=== PATIENT | female | born 1980 | race Caucasian/White ===

== ENCOUNTER 2017-10-15 21:42 | Emergency (ER) | payer OTHER ==
[~2017-10-15] VITALS: Ht 317.5 cm; Wt 72.7 kg
[2017-10-15 22:30] VITALS: TEMP 96
[2017-10-15 22:31] VITALS: Ht 317.5 cm; Wt 72.7 kg
[2017-10-15] MEDS ORDERED: LORAZEPAM 2 MG INJ IM ONE (23:30)
--- NOTE | 2017-10-15 23:46 | RADRPT ---
PROCEDURE: Noncontrast CT Head. CLINICAL INDICATION: Pain. TECHNIQUE: Noncontrast CT of the head was obtained. The administered radiation dose was CTDI vol = 45 mGy, DLP = 810 mGy-cm. One or more of the following dose reduction techniques were used: automate d exposure control, adjustment of the mA and/or kV according to patient size and/or use of iterative reconstruction technique. DICOM images are available. COMPARISON: No pertinent prior examinations were submitted for comparison. FINDINGS: The ventricles and sulci are within normal limits. There is no acute intracranial hemorrhage or ext ra-axial fluid collection. There is no mass effect. No midline shift is identified. There is no loss of latif-white differentiation to suggest acute infarction. The orbits are within normal limits. The paranasal sinuses and mastoid air cells are without fluid. No destructive osseous lesion is identified. IMPRESSION: No acute findings. RPTAT: HIKT .Fawad Ignacio MD, MD Date Time Electronically viewed and signed by .Fawad Ignacio MD, on 10/15/2017 23:46 .T/
--- NOTE | 2017-10-15 23:52 | RADRPT ---
PROCEDURE: Noncontrast CT facial bones. CLINICAL INDICATION: Trauma. TECHNIQUE: Noncontrast CT of the facial bones was obtained. Coronal and sagittal re-formations were provided. The administered radiation dose was CTDI vol = 29 mGy, DLP = 491 mGy-cm. One or more of the following dose reduction techniques were used: automated exposure control, adjustment of the mA and/or kV according to patient size and/or use of iterative reconstruction technique. DICOM images a re available. COMPARISON: No pertinent prior examinations were submitted for comparison. FINDINGS: There are acute, minimally displaced bilateral nasal bone fractures with right sided deviation of th e nasal tip.. The globes are intact. The bony orbits are without worrisome osseous lesion. The extraocular muscl es and optic nerve complexes are normal in caliber. No intraorbital hematoma or inflammatory change s are present. The paranasal sinuses and mastoid air cells are without fluid. Some mild to moderate mucosal thicken ing is noted throughout the paranasal sinuses. IMPRESSION: Minimally displaced bilateral nasal bone fractures. RPTAT: HIKT .Fawad Ignacio MD, MD Date Time Electronically viewed and signed by .Fawad Ignacio MD, MD on 10/15/2017 23:52 .T/
--- NOTE | 2017-10-15 23:54 | RADRPT ---
PROCEDURE: CT Cervical Spine without contrast. CLINICAL INDICATION: Trauma TECHNIQUE: Noncontrast CT of the cervical spine was performed with axial images. Coronal and sagitta l images were also performed. The administered radiation dose was CTDI vol = 27 mGy, DLP = 506 mGy- cm. One or more of the following dose reduction techniques were used: automated exposure control, ad justment of the mA and/or kV according to patient size and/or use of iterative reconstruction techni que. DICOM images are available. COMPARISON: There are no similar studies submitted for comparison. FINDINGS: Vertebral body stature and alignment are maintained. No acute fracture or subluxation is identified. The paravertebral and paraspinous soft tissues are unremarkable. IMPRESSION: No acute fracture or subluxation. RPTAT: HIKT .Fawad Ignacio MD, Date Time Electronically viewed and signed by .Fawad Ignacio MD, on 10/15/2017 23:53 .T/
[2017-10-16] MEDS ORDERED: CLON-412 PO (00:01)
[2017-10-16] MEDS ORDERED: LAMO100T83 PO (00:01)
[2017-10-16 01:35] VITALS: BP 114/73; PULSE 111; RESP 16
[2017-10-16] MEDS ORDERED: NAPR-688 PO (02:00)
[2017-10-16] MEDS ORDERED: HYDR-906 PO (02:00)
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
== END 2017-10-16 02:02 | disposition home or self-care (01) ==
LOC: E/R 21:42
DX: S02.2XXA Fracture of nasal bones, initial encounter for closed fracture (principal); R40.2252 Coma scale, best verbal response, oriented, at arrival to emergency department; F10.120 Alcohol abuse with intoxication, uncomplicated; F17.210 Nicotine dependence, cigarettes, uncomplicated; J44.9 Chronic obstructive pulmonary disease, unspecified; J45.909 Unspecified asthma, uncomplicated; R40.2142 Coma scale, eyes open, spontaneous, at arrival to emergency department; R40.2362 Coma scale, best motor response, obeys commands, at arrival to emergency department; W18.39XA Other fall on same level, initial encounter; Y92.9 Unspecified place or not applicable
CPT/HCPCS: 70450; 70486; 72125; 96372; J2060; Z7502